=== PATIENT | female | born 1975 | race Caucasian/White ===

== ENCOUNTER 2017-07-21 14:42 | Emergency (ER) | payer MEDICARE, BC, SELFPAY | END 2017-07-21 16:10 | disposition home or self-care (01) | PROVIDERS: Emergency Provider Emergency Medicine; Visit Provider Emergency Medicine | DX: H10.31 Unspecified acute conjunctivitis, right eye (principal); F17.210 Nicotine dependence, cigarettes, uncomplicated; J45.909 Unspecified asthma, uncomplicated; B00.1 Herpesviral vesicular dermatitis; Z88.6 Allergy status to analgesic agent | CPT/HCPCS: G0463; 99201 ==

== ENCOUNTER 2017-08-20 05:43 | Emergency (ER) | payer MEDICARE, BC, SELFPAY ==
[2017-08-20 05:50] VITALS: BP 110/88; PULSE 112; RESP 18; TEMP 36.7; O2SAT 97; BMI 24.6
--- NOTE | 2017-08-20 06:03 | XR_ITS ---
XR chest 2V HISTORY: ITS.REASON: pain ORDERING PHYSICIAN: Jasmeet Vincent MD PATIENT AGE: 42 years COMPARISON: 10/12/2016 FINDINGS: The cardiomediastinal silhouette and pulmonary vascularity are within normal limits. There is pectus deformity with resultant obliteration of the right heart border. There is some increased density in the right middle lobe compared to the previous exam suggesting underlying infiltrate.. There is a vague 14 mm nodular opacity in the left upper lobe overlying the third rib anteriorly. Developing pulmonary nodule is considered. Consider chest CT for further evaluation.. No acute bony abnormalities. IMPRESSION: 1. Right middle lobe infiltrate with superimposed pectus deformity 2. Vague 14 mm left upper lobe nodule. Consider chest CT for further evaluation
--- NOTE | 2017-08-20 06:48 | HMH.EDGENADL ---
ED Disposition Clinical Impression: Angular cheilosis CAP (community acquired pneumonia) Qualifiers: Laterality: right Lung location: lower lobe of lung Qualified Code(s): J18.1 - Lobar pneumonia, unspecified organism Disposition: Home, Self-Care Condition on Discharge: Good Instructions: DI for Cough -- Adult Additional Instructions: use meds and see pcp for follow up - Prescriptions: Azithromycin [Zithromax 250mg tab] 250 mg PO DIRECTED #6 tab Benzonatate [Tessalon Perle 100mg Cap] 100 mg PO TID #30 cap Mupirocin Calcium [Bactroban 2% Cream 15gm] 1 applicatio TP BID #1 tube predniSONE [Prednisone 20mg Tab] 20 mg PO DAILY #10 tab Referrals: Laxmi Power APRN [Primary Care Provider] - - Critical Care Critical Care Time: No Attestation: On 08/20/17, the high probability of a clinically significant, sudden or life threatening deterioration of the following system(s) required my full and direct attention, intervention and personal management. The time I documented below is in addition to time spent performing reported procedures but includes the following listed in this critical care notation. Medical Decision Making - Medical Records Medical records reviewed: Yes: I reviewed the patient's medical records. Vital Signs: 08/20/17 05:50 Temperature 98.0 F Temperature Source Oral Pulse Rate [Left Radial] 112 H Respiratory Rate 18 Blood Pressure [Right Arm] 110/88 Blood Pressure Mean [Right Arm] 95 Blood Pressure Source [Right Arm] Automatic Cuff Blood Pressure Position [Right Arm] Supine 02 Sat by Pulse Oximetry 97 Oxygen Delivery Method Room Air - Lab Data Lab results reviewed: Yes: I reviewed the patient's lab results. Orders (Tests/Meds): ORDERS Category Date Time Status Chest XR 2 view (NOT portable) [XR chest 2V] Stat Exams 08/20/17 06:03 Taken - Radiology Data #1 Image(s): Chest Image Reviewed: Yes I reviewed the patient's radiology image Preliminary Findings: Abnormal (cap) - Karlo Inquiry Pt receiving controlled substance: No General Adult HPI - General Chief complaint: PAIN Stated complaint: blister on corner of mouth,pain in left side Time Seen by Provider: 08/20/17 06:48 Mode of Arrival: Ambulatory Limitations: No Limitations Description of Symptoms (Recalled from ER Triage Doc. 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 - pt has lip rash treated at [facility] with acyolvir Onset (ago): day(s) Location: chest Radiation: non-radiation Severity: moderate Associated symptoms: cough Treatments prior to arrival: NSAID - Related Data Previous Rx's Medication Instructions Recorded Azithromycin [Zithromax 250mg 250 mg PO DIRECTED #6 tab 08/20/17 tab] Benzonatate [Tessalon Perle 100mg 100 mg PO TID #30 cap 08/20/17 Cap] Mupirocin Calcium [Bactroban 2% 1 applicatio TP BID #1 tube 08/20/17 Cream 15gm] predniSONE [Prednisone 20mg 20 mg PO DAILY #10 tab 08/20/17 Tab] Allergies Allergy/AdvReac Type Severity Reaction Status Date / Time ketorolac [From TORADOL] Allergy Unknown Verified 08/20/17 06:01 naproxen [NAPROXEN] Allergy Unknown Verified 08/20/17 06:01 tramadol [TRAMADOL] Allergy Unknown Verified 08/20/17 06:01 [facility] History I have reviewed the patient's past medical history: Yes Medical History: Denies:: Cancer, Diabetes Mellitus Type 1, Diabetes Mellitus Type 2, MRSA Amputation: No Fractures: No - *Social History Educational Level: Attended High School Smoking Status: Current every day smoker Tobacco Type: cigarettes # Packs/Day (cigarettes): 1 Alcohol Intake: never - Psychiatric History Expresses thoughts of harming self/others: None Suicide Plan Description: No Plan ROS Obtained: Yes All systems revi
--- NOTE | 2017-08-20 06:51 | ED_ITS ---
ED Disposition Clinical Impression: Angular cheilosis CAP (community acquired pneumonia) Qualifiers: Laterality: right Lung location: lower lobe of lung Qualified Code(s): J18.1 - Lobar pneumonia, unspecified organism Disposition: Home, Self-Care Condition on Discharge: Good Instructions: DI for Cough -- Adult Additional Instructions: use meds and see pcp for follow up - Prescriptions: Azithromycin [Zithromax 250mg tab] 250 mg PO DIRECTED #6 tab Benzonatate [Tessalon Perle 100mg Cap] 100 mg PO TID #30 cap Mupirocin Calcium [Bactroban 2% Cream 15gm] 1 applicatio TP BID #1 tube predniSONE [Prednisone 20mg Tab] 20 mg PO DAILY #10 tab Referrals: Laxmi Power APRN [Primary Care Provider] - - Critical Care Critical Care Time: No Attestation: On 08/20/17, the high probability of a clinically significant, sudden or life threatening deterioration of the following system(s) required my full and direct attention, intervention and personal management. The time I documented below is in addition to time spent performing reported procedures but includes the following listed in this critical care notation. Medical Decision Making - Medical Records Medical records reviewed: Yes: I reviewed the patient's medical records. Vital Signs: 08/20/17 05:50 Temperature 98.0 F Temperature Source Oral Pulse Rate [Left Radial] 112 H Respiratory Rate 18 Blood Pressure [Right Arm] 110/88 Blood Pressure Mean [Right Arm] 95 Blood Pressure Source [Right Arm] Automatic Cuff Blood Pressure Position [Right Arm] Supine 02 Sat by Pulse Oximetry 97 Oxygen Delivery Method Room Air - Lab Data Lab results reviewed: Yes: I reviewed the patient's lab results. Orders (Tests/Meds): ORDERS Category Date Time Status Chest XR 2 view (NOT portable) [XR chest 2V] Stat Exams 08/20/17 06:03 Taken - Radiology Data #1 Image(s): Chest Image Reviewed: Yes I reviewed the patient's radiology image Preliminary Findings: Abnormal (cap) - Karlo Inquiry Pt receiving controlled substance: No General Adult HPI - General Chief complaint: PAIN Stated complaint: blister on corner of mouth,pain in left side Time Seen by Provider: 08/20/17 06:48 Mode of Arrival: Ambulatory Limitations: No Limitations Description of Symptoms (Recalled from ER Triage Doc. 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 - pt has lip rash treated at [facility] with acyolvir Onset (ago): day(s) Location: chest Radiation: non-radiation Severity: moderate Associated symptoms: cough Treatments prior to arrival: NSAID - Related Data Previous Rx's Medication Instructions Recorded Azithromycin [Zithromax 250mg 250 mg PO DIRECTED #6 tab 08/20/17 tab] Benzonatate [Tessalon Perle 100mg 100 mg PO TID #30 cap 08/20/17 Cap] Mupirocin Calcium [Bactroban 2% 1 applicatio TP BID #1 tube 08/20/17 Cream 15gm] predniSONE [Prednisone 20mg 20 mg PO DAILY #10 tab 08/20/17 Tab] Allergies Allergy/AdvReac Type Severity Reaction Status Date / Time ketorolac [From TORADOL] Allergy Unkno
[2017-08-20 07:17] VITALS: BP 112/70; PULSE 80; RESP 12; TEMP 37; O2SAT 98
== END 2017-08-20 07:20 | disposition home or self-care (01) ==
PROVIDERS: Emergency Provider Emergency Medicine; Family Provider Emergency Medicine; PCP Nurse Practitioner Family
DX: J18.9 Pneumonia, unspecified organism (principal); K13.0 Diseases of lips; F17.210 Nicotine dependence, cigarettes, uncomplicated
CPT/HCPCS: 71046; 99282

== ENCOUNTER → 2018-04-01 09:38 | Outpatient (CLI) | payer MEDICARE, BC, SELFPAY ==
--- NOTE | 2018-04-01 09:43 | MM_ITS ---
MM Dig screening mamm BI w/CAD CAD Screening INDICATION: Screening for breast cancer ORDERING PHYSICIAN: Deja Marks PATIENT AGE: 43 years COMPARISON: 4 16, 10/12/2015 TECHNIQUE: Standard CC and MLO images were obtained. R2 CAD reviewed. FINDINGS: The report is delayed secondary to technical issues with the PACS program which have been resolved. [facility]. There is average fibroglandular tissue. A MicroMark clip is present in the outer aspect of the right breast. There are 2 new nodular densities in the posterior aspect of the right breast each measuring 6 mm and have developed since the previous exam. The more anterior of these 2 nodular densities has somewhat obscured margins. Spot compression views and ultrasound is suggested. There are 3 nodular densities in the central aspect of the left breast which are somewhat more apparent. By compression views and ultrasound suggested. IMPRESSION: Inconclusive, additional imaging needed. Bilateral nodular densities noted Recommend bilateral spot compression views, straight ML views and bilateral breast ultrasound BI-RADS Category: 0 Need Additional Imaging Evaluation RECOMMENDED FOLLOW-UP: IMM - IMMEDIATE FOLLOW-UP RECOMMENDED (A letter has been sent to the patient regarding results of the study.)
== END ==
PROVIDERS: Family Provider Emergency Medicine; PCP Nurse Practitioner Family; Visit Provider Nurse Practitioner Family
DX: Z12.31 Encounter for screening mammogram for malignant neoplasm of breast (principal)
CPT/HCPCS: 77067

== ENCOUNTER → 2018-06-08 13:16 | Outpatient (CLI) | payer MEDICARE, BC, SELFPAY ==
--- NOTE | 2018-06-08 13:21 | MM_ITS ---
MM Dig mamm BI DX w/CAD, US breast RT complete, US breast LT complete INDICATION: Follow-up abnormal mammogram ORDERING PHYSICIAN: Bina Reddy [facility] PATIENT AGE: 43 years COMPARISON: 04/01/2018, 09/13/2015 TECHNIQUE: Problem-solving views performed of both breasts along with bilateral breast ultrasound FINDINGS: Right breast: Average fibroglandular tissue. Benign-appearing nodular density in the deep upper right breast 5 mm. Spot compression views show this to be well-circumscribed. Right breast ultrasound: 3 mm cyst at 9:00. No malignant appearing mass apparent. Left mammogram: There are multiple benign-appearing nodular densities in the left breast one in the upper outer quadrant at 5 mm and 2 in the lower outer quadrant.. No malignant appearing mass evident. Left breast ultrasound: 4 mm cyst at 3:00, 6 mm cyst at 4:00, no malignant appearing mass evident. IMPRESSION: Probably benign findings, no evidence of malignancy. Recommend bilateral 6 month mammographic follow-up BI-RADS Category: 3 Probably Benign Finding Short Term Follow-up RECOMMENDED FOLLOW-UP: 6M - 6 MONTH FOLLOW-UP (A letter has been sent to the patient regarding results of the study.)
== END ==
PROVIDERS: PCP Nurse Practitioner Obstetrics & Gynecology; Visit Provider Nurse Practitioner Obstetrics & Gynecology
DX: R92.8 Other abnormal and inconclusive findings on diagnostic imaging of breast (principal)
CPT/HCPCS: 76641; 77066